=== PATIENT | male | born 1965 | race Caucasian/White ===

== ENCOUNTER 2020-05-17 08:19 | Emergency (ER) | payer OTHER ==
[~2020-05-17] VITALS: Ht 182.9 cm; Wt 108.9 kg
[2020-05-17 08:34] VITALS: BP 138/65
[2020-05-17] MEDS ORDERED: CARVEDILOL12.5 MG PO ×3 (08:39→09:02)
[2020-05-17] MEDS ORDERED: LIPITOR40 MG PO ×2 (08:39→09:02)
[2020-05-17] MEDS ORDERED: AMIODARONE HCL400 MG PO (08:39)
[2020-05-17] MEDS ORDERED: LASIX 40 MG TAB40 MG PO ×2 (08:39→09:02)
[2020-05-17] MEDS ORDERED: SPIRONOLACTONE50 MG PO ×2 (08:40→09:02)
[2020-05-17] MEDS ORDERED: ZESTRIL5 MG PO ×2 (08:40→09:02)
[2020-05-17] MEDS ORDERED: PACERONE200 MG PO (09:02)
== END 2020-05-17 09:09 | disposition home or self-care (01) ==
LOC: M.ERS 08:19
DX: Z76.0 Encounter for issue of repeat prescription (principal); I50.9 Heart failure, unspecified; E11.9 Type 2 diabetes mellitus without complications; Z88.6 Allergy status to analgesic agent; Z79.899 Other long term (current) drug therapy